=== PATIENT | male | born 1985 | race Caucasian/White ===

== ENCOUNTER 2023-03-09 03:04 | Emergency (ER) | payer BC, SELFPAY | END 2023-03-09 07:15 | disposition home or self-care (01) | LOC: ERS 03:04 | DX: S09.90XA Unspecified injury of head, initial encounter (principal); S01.81XA Laceration without foreign body of other part of head, initial encounter; S60.511A Abrasion of right hand, initial encounter; S60.512A Abrasion of left hand, initial encounter; X58.XXXA Exposure to other specified factors, initial encounter; Y93.01 Activity, walking, marching and hiking | CPT/HCPCS: 70450; 70486; 72125 ==